=== PATIENT | male | born 1980 | race Caucasian/White ===

== ENCOUNTER 2017-05-03 02:03 | Emergency (ER) | payer OTHER ==
[~2017-05-03] VITALS: Ht 167.6 cm; Wt 72.7 kg
[2017-05-03 02:39] VITALS: Ht 167.6 cm; Wt 72.7 kg
[2017-05-03] MEDS ORDERED: AMOX500C2 PO (03:30)
[2017-05-03] MEDS ORDERED: IBUP-1542 PO (03:30)
[2017-05-03] MEDS ORDERED: PRED50TA PO (03:30)
--- NOTE | 2017-05-03 03:52 | ERD ---
ER Documentation Chief Complaint Chief Complaint c/o sore throat and raspy voice x5 days. HPI 36-year-old male presents to emergency department for complaints of sore throat , hoarseness of the voice on and off fever for 5 days. Patient is complaining of sore throat, burning pain, succession scale, as was upon swallowing, accompanied with hoarseness of the voice and fever. Patient did not take any medications to help with symptoms. Patient denies any stridor or shortness of breath. ROS All systems reviewed and are negative except as per history of present illness. Medications Home Meds Active Scripts Prednisone* (Prednisone*) 50 Mg Tablet, 50 MG PO DAILY, #5 TAB Prov:MAAME GUTIERREZ NP 05/03/17 Ibuprofen* (Motrin*) 600 Mg Tab, 600 MG PO Q6H Y for PAIN AND OR ELEVATED TEMP, #30 TAB Prov:MAAME GUTIERREZ NP 05/03/17 Amoxicillin* (Amoxicillin*) 500 Mg Cap, 500 MG PO TID for 10 Days, CAP Prov:MAAME GUTIERREZ NP 05/03/17 Allergies Allergies: Coded Allergies: No Known Drug Allergy (Verified Allergy, Unknown, 05/03/17) PMhx/Soc Medical and Surgical Hx: pt denies Medical Hx, pt denies Surgical Hx Hx Alcohol Use: No Hx Substance Use: No Hx Tobacco Use: No Smoking Status: Never smoker FmHx Family History: No coronary disease, No diabetes, No other Physical Exam Vitals Vital Signs Date Time Temp Pulse Resp B/P Pulse Ox O2 Delivery O2 Flow Rate FiO2 05/03/17 02:39 97.8 75 18 140/96 99 Physical Exam GENERAL: The patient is well developed and appropriate for usual state of health, in no apparent distress. HEENT: Atraumatic. Ears: Normal tympanic membrane, no erythema or bulging. No ear canal swelling. No ear discharge. Nose: normal nasal turbinates, no erythema or swelling. Normal nasal discharge. Throat: oropharynx erythematous. No tonsillar swelling or tonsillar exudates. No lymphadenopathy. Hoarseness of f the voice noted. CHEST: Clear to auscultation bilaterally. There are no rales, wheezes or rhonchi. HEART: Regular rate and rhythm. No murmurs, clicks, rubs or gallops. No S3 or S4. ABDOMEN: Soft, nontender and nondistended. Good bowel sounds. No rebound or guarding. No gross peritonitis. No gross organomegaly or masses. No Sanders sign or McBurney point tenderness. BACK: No midline or flank tenderness. EXTREMITIES: Equal pulses bilaterally. There is no peripheral clubbing, cyanosis or edema. No focal swelling or erythema. Full range of motion. Grossly neurovascularly intact. NEURO: Alert and oriented. Cranial nerves 2-12 intact. Motor strength in all 4 extremities with 5/5 strength. Sensation grossly intact. Normal speech and gait. SKIN: There is no apparent rash or petechia. The skin is warm and dry. HEMATOLOGIC AND LYMPHATIC: There is no evidence of excessive bruising or lymphedema. No gross cervical, axillary, or inguinal lymphadenopathy. Procedures/MDM Medical decision making: Patient symptoms is likely consistent with acute laryngitis, most likely can be bacterial in nature. Low suspicion for peritonsillar abscess, mononucleosis, no symptoms of epiglottitis. No oral airway obstruction noted. No symptoms of sepsis at this time. Patient appears well and is hemodynamically stable. Patient was given for amoxicillin, ibuprofen , prednisone, is advised to follow-up with primary care doctor in 2-3 days for reevaluation of symptoms. Patient is advised to do salt water gargles. Patient is advised to return to emergency department for worsening symptoms. Disposition: Home. Stable. Disclaimer: Inadvertent spelling and grammatical errors are likely due to EHR/ dictation software use and do not reflect on the overall quality of patient care. Also, please note that the electronic time recorded on this note does not necessarily reflect the actual time of the patient encounter. Departure Diagnosis: Primary Impression: Laryngitis Condition: Stable Patient Instructions: MAAME Mike NP May 03, 2017 03:52
== END 2017-05-03 03:55 | disposition home or self-care (01) ==
LOC: FTE 02:03
DX: J04.0 Acute laryngitis (principal)
CPT/HCPCS: 99284